=== PATIENT | female | born 1950 | race Caucasian/White ===

== ENCOUNTER 2016-12-29 17:45 | Emergency (ER) | payer MEDICARE, OTHER ==
[~2016-12-29 17:45] MED LIST: ACCUPRIL5 MG PO; ALPRAZOLAM0.5 MG PO; ASPIR 8181 MG PO; CARDIZEM CD240 MG PO; CLARITIN 10MG T10 MG PO; COMBIVENT0.074 GM/I INH; CORDARONE 200M200 MG PO; COREG 3.125M3.125 MG PO; DOXEPIN HCL50 MG PO; DULERA 100 MCG8.8 GM INH; EFFEXOR 25 MG T25 MG PO; EFFEXOR XR75 MG PO; ELIQUIS5 MG PO; LANOXIN TAB0.125 MG PO; LORTAB 5-325 M1 EACH PO; MEDROL DOSEPAK 24 MG PO; METOPROLOL TART25 MG PO; METOPROLOL TART50 MG PO; PLAVIX 75 MG TA75 MG PO; PREMARIN0.9 MG PO; PRILOSEC OTC20 MG PO; SPIRIVA18 MCG INH; ZOCOR20 MG PO
[2016-12-29 19:02] LABS: BUN/CREATININE RATIO 17 (0-10)
[2016-12-29 19:41] LABS: HEMOGLOBIN 11.3 gm/dl (12.3-15.3); RED BLOOD COUNT 3.73 M/UL (4.00-5.10); WHITE BLOOD COUNT 6.7 K/UL (4.5-11.0)
== END 2016-12-29 21:57 | disposition home or self-care (01) ==
LOC: ER1 17:45
PROVIDERS: Family Medicine
DX: J44.1 Chronic obstructive pulmonary disease with (acute) exacerbation (principal); I21.3 ST elevation (STEMI) myocardial infarction of unspecified site; Z99.81 Dependence on supplemental oxygen; Z88.0 Allergy status to penicillin; Z79.82 Long term (current) use of aspirin; Z87.891 Personal history of nicotine dependence; Z91.018 Allergy to other foods; Z99.89 Dependence on other enabling machines and devices
CPT/HCPCS: 36415; 36600; 71010; 80053; 82550; 82553; 82803; 83874; 83880; 84484; 85025; 93005; 96374; 99285; J2930